=== PATIENT | male | born 1960 | race Caucasian/White ===

== ENCOUNTER → 2024-07-20 | Outpatient (CLI) | payer OTHER, MEDICARE | LOC: M PLARAD 10:20 | PROVIDERS: ATTEND Student in an Organized Health Care Education/Training Program | DX: C34.02 Malignant neoplasm of left main bronchus (principal); C79.51 Secondary malignant neoplasm of bone; C79.31 Secondary malignant neoplasm of brain | CPT/HCPCS: 78815; A9552 ==

== ENCOUNTER → 2025-01-03 | Outpatient (CLI) | payer OTHER, MEDICARE | LOC: M PLARAD 13:18 | PROVIDERS: ATTEND Student in an Organized Health Care Education/Training Program | DX: C34.02 Malignant neoplasm of left main bronchus (principal) | CPT/HCPCS: 78815; A9552 ==